=== PATIENT | male | born 1955 | race Caucasian/White ===

== ENCOUNTER → 2024-06-19 | Day surgery (SDC) | payer MEDICARE ==
[~2024-06-19] MED LIST: ACETAMINOPHEN 1000 MG/100 ML 100 ML IV ONE; ALLOPURINOL300 MG PO; AMITRIPTYLINE H10 MG PO; AMLODIPINE BESYL5 MG PO; ELIQUIS5 MG PO; EPHEDRINE SULFATE INJ 50 MG/ML VIAL ONE; FENTANYL CITRATE/PF 100MCG/2 ML INJ ONE; FISH OIL 1,0001 EAC7 PO; FLOMAX0.4 MG PO; LIDOCAINE HCL 2% LOCAL INJ 5 ML SDV VIAL INJ ONE; LISINOPRIL10 MG PO; METOCLOPRAMIDE HCL 10 MG/2ML VIAL ONE; METOPROLOL SUCC50 MG PO; MULTI-VITAMIN1 EACH PO; ONDANSETRON HCL INJ 2MG/ML 2ML 2 MG/ML VIAL ONE; PHENYLEPHRINE HCL 1% 10 MG/ML VIAL ONE; PROPOFOL IV EMULSION 10 MG/ML 20 ML VIAL ONE; SEVOFLURANE INHAL SOLN 250 ML PEN BTL ONE
[2024-06-19] MEDS: CEFTRIAXONE 1 GM VIAL ONE (06:08)
[2024-06-19] MEDS: LACTATED RINGER'S 1,000 ML ONE (06:08)
[2024-06-19 08:41] VITALS: BP 155/94; PULSE 78; RESP 17; O2SAT 96
== END | disposition home or self-care (01) ==
LOC: OR 05:25
PROVIDERS: ATTEND Urology
DX: N20.0 Calculus of kidney (principal); N39.0 Urinary tract infection, site not specified; N13.30 Unspecified hydronephrosis; N40.1 Benign prostatic hyperplasia with lower urinary tract symptoms; R35.1 Nocturia; G47.33 Obstructive sleep apnea (adult) (pediatric); E66.01 Morbid (severe) obesity due to excess calories; D68.8 Other specified coagulation defects; I10 Essential (primary) hypertension; I48.91 Unspecified atrial fibrillation; E78.5 Hyperlipidemia, unspecified; K21.9 Gastro-esophageal reflux disease without esophagitis; M10.9 Gout, unspecified; F17.210 Nicotine dependence, cigarettes, uncomplicated; Z88.8 Allergy status to other drugs, medicaments and biological substances; Z79.02 Long term (current) use of antithrombotics/antiplatelets; Z79.899 Other long term (current) drug therapy; Z68.43 Body mass index [BMI] 50.0-59.9, adult
CPT/HCPCS: 50590; 74018; 93005; J0131; J0696; J2003; J2371; J2405; J2704; J2765; J3010; J7121